=== PATIENT | male | born 1990 ===

== ENCOUNTER 2021-06-19 08:05 | Emergency (ER) | payer OTHER ==
--- NOTE | 2021-06-19 09:21 | XRay Report ---
CHEST 2 VIEWS INDICATION / CLINICAL INFORMATION: cough. COMPARISON: None available. FINDINGS: SUPPORT DEVICES: None. HEART / MEDIASTINUM: No significant abnormality. LUNGS / PLEURA: No significant pulmonary or pleural abnormality. No pneumothorax. ADDITIONAL FINDINGS: No significant additional findings. IMPRESSION: 1. No acute findings. Signer Name: Gerhard Carson MD Signed: 06/19/2021 9:17 AM Workstation Name: [id number]
[2021-06-19] MEDS ORDERED: dexAMETHasone 4 MG/ML VIAL IM STA (11:03)
--- NOTE | 2021-06-19 11:18 | Emergency Department Report ---
ED General Adult HPI - General Chief complaint: Upper Respiratory Infection Stated complaint: COUGH AND CONGESTION Time Seen by Provider: 06/19/21 10:44 Source: patient Mode of arrival: Ambulatory Limitations: No Limitations - History of Present Illness Initial comments: 31-year-old -[place] male patient presents with complaints of nasal congestion, facial pain, and cough x5 to 7 days. He states his symptoms are worsening. Patient reports a history of recurrent bacterial sinusitis. He denies any loss of taste or smell, chest pain, hemoptysis, or shortness of breath. He states he has had 2 - COVID-19 test for the symptoms and is vaccinated against COVID-19. He has tried multiple OTC medications without improvement in his symptoms per patient - Related Data Previous Rx's Medication Instructions Recorded Last Taken Type Doxycycline Monohydrate 100 mg PO BID 7 Days #14 capsule 06/19/21 Unknown Rx [Doxycycline Monohydrate CAP] predniSONE [Deltasone] 20 mg PO BID 4 Days #8 tab 06/19/21 Unknown Rx Allergies Allergy/AdvReac Type Severity Reaction Status Date / Time No Known Allergies Allergy Unverified 06/19/21 08:06 ED Review of Systems ROS: Stated complaint: COUGH AND CONGESTION Other details as noted in HPI Constitutional: denies: chills, diaphoresis, fever, malaise ENT: congestion. denies: throat pain Respiratory: cough. denies: shortness of breath Cardiovascular: denies: chest pain Gastrointestinal: denies: nausea, vomiting, diarrhea Neurological: denies: headache ED Past Medical Hx - Past Medical History Previous Medical History?: Yes Hx Hypertension: Yes - Surgical History Past Surgical History?: No - Medications Home Medications: Home Medications Medication Instructions Recorded Confirmed Last Taken Type Doxycycline Monohydrate 100 mg PO BID 7 Days #14 capsule 06/19/21 Unknown Rx [Doxycycline Monohydrate CAP] predniSONE [Deltasone] 20 mg PO BID 4 Days #8 tab 06/19/21 Unknown Rx ED Physical Exam - General Limitations: No Limitations General appearance: alert, in no apparent distress - Head Head exam: Present: atraumatic, normocephalic - Eye Eye exam: Present: normal appearance - ENT ENT exam: Present: other (Bilateral frontal and maxillary sinus tenderness to palpation noted without overlying facial swelling or erythema) - Neck Neck exam: Present: normal inspection - Respiratory Respiratory exam: Present: normal lung sounds bilaterally. Absent: respiratory distress - Cardiovascular Cardiovascular Exam: Present: regular rate, normal rhythm - Neurological Exam Neurological exam: Present: alert, oriented X3 - Psychiatric Psychiatric exam: Present: normal affect, normal mood - Skin Skin exam: Present: warm, dry, intact, normal color. Absent: rash ED Course Vital Signs 06/19/21 08:08 Temperature 98.3 F Pulse Rate 116 H Respiratory 15 Rate Blood Pressure 153/113 O2 Sat by Pulse 96 Oximetry ED Medical Decision Making - Medical Decision Making 31-year-old -[place] male patient presents with complaints of nasal congestion, facial pain, and cough x5 to 7 days. He states his symptoms are worsening. Patient reports a history of recurrent bacterial sinusitis. He denies any loss of taste or smell, chest pain, hemoptysis, or shortness of breath. He states he has had 2 - COVID-19 test for the symptoms and is vaccinated against COVID-19. He has tried multiple OTC medications without improvement in his symptoms per patient We will treat for acute bacterial sinusitis with doxycycline given patient's allergy to amoxicillin. He is to follow-up with his primary care doctor in 3 to 5 days. Discussed signs and symptoms that should prompt immediate return to the ED with patient who verbalizes understanding. Also discussed importance of better blood pressure control, he does report compliance with his antihypertensive medication Critical care attestation.: If time is entered above; I have spent that time in minutes in the direct care of this critically ill patient, excluding procedure time. ED Disposition Clinical Impression: Acute bacterial sinusitis Disposition: 01 HOME / SELF CARE / HOMELESS Is pt being admited?: No Condition: Stable Instructions: Sinusitis, Adult, [id number] Prescriptions: predniSONE [Deltasone] 20 mg PO BID 4 Days #8 tab Doxycycline Monohydrate [Doxycycline Monohydrate CAP] 100 mg PO BID 7 Days #14 capsule Referrals: DEJAN LOMAS MD [Primary Care Provider] - 3-5 Days Forms: Work/School Release Form(ED)
[2021-06-19 11:22] VITALS: BP 141/103
== END 2021-06-19 11:56 | disposition home or self-care (01) ==
LOC: ED 08:05
DX: J01.90 Acute sinusitis, unspecified (principal); B96.89 Other specified bacterial agents as the cause of diseases classified elsewhere; I10 Essential (primary) hypertension; Z88.1 Allergy status to other antibiotic agents; Z79.899 Other long term (current) drug therapy
CPT/HCPCS: 71046; 96372; 99283; J1100